=== PATIENT | female | born 1985 | race Caucasian/White ===

== ENCOUNTER → 2017-01-01 | Outpatient (CLI) | payer BC, MEDICAID ==
--- NOTE | 2017-01-01 15:09 | US ---
EXAMINATION: Transvaginal pelvic ultrasound HISTORY: Pain COMPARISON: None TECHNIQUE: Grayscale, color Doppler, spectral Doppler images obtained transvaginally. FINDINGS: The uterus appears normal in size, contour, and echogenicity without a focal uterine mass. Endometrial stripe thickness is normal at 4 mm. No significant free-flowing fluid. Both the left and right ovaries appear normal in size, contour, and echogenicity without an adnexal mass. Tiny follicles are noted bilaterally. Normal color and spectral Doppler flow. IMPRESSION: Unremarkable transvaginal pelvic ultrasound.
== END ==
LOC: MW.CHOBGYN 12:02
PROVIDERS: ATTEND Advanced Practice Midwife
DX: R10.2 Pelvic and perineal pain (principal)
CPT/HCPCS: 76857; 76857-26

== ENCOUNTER 2017-01-12 19:57 | Emergency (ER) | payer BC, MEDICAID, OTHER ==
--- NOTE | 2017-01-12 20:19 | EDM.PDOC ---
ED HPI GENERAL MEDICAL PROBLEM - General Chief Complaint: Upper Extremity Injury/Pain Stated Complaint: JAMMED LEFT HAND/WRIST Time Seen by Provider: 01/12/17 20:08 Source of Information: Reports: Patient History Limitations: Reports: No Limitations - History of Present Illness INITIAL COMMENTS - FREE TEXT/NARRATIVE: History of present illness: [31-year-old female presenting with complaints of pain in left hand and wrist. Indicates that she had a all healing scaphoid fracture in that hand and now after blunt force trauma playing softball that she has significant amounts of pain and difficult movement of left hand.] Review of systems: As per history of present illness and below otherwise all systems reviewed and negative. Past medical history: As per history of present illness and as reviewed below otherwise noncontributory. Surgical history: As per history of present illness and as reviewed below otherwise noncontributory. Social history: No reported history of drug or alcohol abuse. Family history: As per history of present illness and as reviewed below otherwise noncontributory. Physical exam: HEENT: Atraumatic, normocephalic, pupils reactive, negative for conjunctival pallor or scleral icterus, mucous membranes moist, throat clear, neck supple, nontender, trachea midline. Lungs: Clear to auscultation, breath sounds equal bilaterally, chest nontender. Heart: S1S2, regular, negative for clicks, rubs, or JVD. Abdomen: Soft, nondistended, nontender. Negative for masses or hepatosplenomegaly. Negative for costovertebral tenderness. Pelvis: Stable nontender. Genitourinary: Deferred. Rectal: Deferred. Extremities: Atraumatic, negative for cords or calf pain. Neurovascular unremarkable. Neuro: Awake, alert, oriented. Cranial nerves II through XII unremarkable. Cerebellum unremarkable. Motor and sensory unremarkable throughout. Exam nonfocal. Diagnostics: [X-ray left hand and wrist] Therapeutics: [] Impression: [left hand plane] Plan: [splint f/u with pcp] Definitive disposition and diagnosis as appropriate pending reevaluation and review of above. Left Wrist Pain Score (Numeric/FACES): 10 - Related Data Allergies Allergy/AdvReac Type Severity Reaction Status Date / Time amoxicillin Allergy Hives Verified 06/30/16 11:18 Latex, Natural Rubber Allergy Hives Verified 06/30/16 11:18 Home Meds: Home Meds Desogestrel-Ethinyl Estradiol [Desogestrel-Ethinyl Estrad Tab] 1 tab PO DAILY [History] Sertraline HCl [Zoloft] 50 tab PO DAILY 06/30/16 [History] Past Medical History HEENT History: Reports: None Cardiovascular History: Reports: None Respiratory History: Reports: None Gastrointestinal History: Reports: None Genitourinary History: Reports: None 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, Musculoskeletal History: Reports: Arthritis, Fracture Other Musculoskeletal History: 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, hx of fx right elbow Neurological History: Reports: None Psychiatric History: Reports: Depression Endocrine/Metabolic History: Reports: Obesity/BMI 30+ Hematologic History: Reports: None Immunologic History: Reports: None Oncologic (Cancer) History: Reports: None Dermatologic History: Reports: None - Past Surgical History GI Surgical History: Reports: Hernia, Abdominal Female Surgical History: Reports: Section Social & Family History - Tobacco Use Smoking Status *Q: Current Every Day Smoker - Alcohol Use Days Per Week of Alcohol Use: 1 - Recreational Drug Use Recreational Drug Use: No Drug Use in Last 12 Months: No Review of Systems - Review of Systems Review Of Systems: See Below (See history of present illness) Trauma Exam - Physical Exam Exam: See Below (See history of present illness) Course - Vital Signs Last Recorded V/S: Last Vital Signs Temp 37.1 C 01/12/17 20:02 Pulse 99 01/12/17 20:02 Resp 18 01/12/17 20:02 BP 135/87 01/12/17 20:02 Pulse Ox 98 01/12/17 20:02 - Orders/Labs/Meds Orders: Active Orders 24 hr Category Date Time Status Hand 2V Lt [CR] Stat Exams 01/12/17 20:07 Taken Departure - Departure Time of Disposition: 20:45 Disposition: Home, Self-Care 01 Condition: good Clinical Impression: Hand pain, left - Discharge Information Forms: ED Department Discharge Additional Instructions: The following information is given to patients seen in the emergency department who are being discharged to home. This information is to outline your options for follow-up care. We provide all patients seen in our emergency department with a follow-up referral. The need for follow-up, as well as the timing and circumstances, are variable depending upon the specifics of your emergency department visit. If you don't have a primary care physician on staff, we will provide you with a referral. We always advise you to contact your personal physician following an emergency department visit to inform them of the circumstance of the visit and for follow-up with them and/or the need for any referrals to a consulting specialist. The emergency department will also refer you to a specialist when appropriate. This referral assures that you have the opportunity for follow-up care with a specialist. All of these measure are taken in an effort to provide you with optimal care, which includes your follow-up. Under all circumstances we always encourage you to contact your private physician who remains a resource for coordinating your care. When calling for follow-up care, please make the office aware that this follow-up is from your recent emergency room visit. If for any reason you are refused follow-up, please contact the [facility] Emergency Department at and asked to speak to the emergency department charge nurse. You may alternate ice and heat on your wrist and hand for comfort no longer than 20 minutes at a time Keep hand elevated as much as possible You may take ibuprofen 800 mg every 8 hours as needed for discomfort Followup with your PCP in one to 2 days Return to ED as needed as discussed - My Orders Last 24 Hours: My Active Orders 01/12/17 20:07 Hand 2V Lt [CR] Stat - Assessment/Plan Last 24 Hours: My Active Orders 01/12/17 20:07 Hand 2V Lt [CR] Stat
[2017-01-12] MEDS ORDERED: Ketorolac 60 MG/2 ML SDV IM ONE (20:57)
[2017-01-12] MEDS ORDERED: Ketorolac 30 MG/ML SDV ONE (21:05)
[2017-01-12] MEDS ORDERED: Ketorolac 30 MG/ML SDV IVPUSH ONE (21:07)
[2017-01-12 21:41] VITALS: BP 117/73
--- NOTE | 2017-01-13 10:16 | CR ---
EXAM DATE: 01/12/17 PATIENT'S AGE: 31 Patient: CESAR MARTIN Facility: [place], [place] Site . Site : 1985 Study: XRay Extremity Left [id number]/30/2017 8:24:18 PM Ordering Physician: Doctor Christian Final Report: Indication: Injury. Technique: Left hand two views. Comparison: None. Findings: No acute fracture or dislocation. No additional osseous abnormality. Soft tissues as imaged are unremarkable. Impression: No acute osseous abnormality. Dictated by Cameron Shah MD @ 01/12/2017 8:29:53 PM Dictated by: Cameron Shah MD @ 01/12/2017 20:30:14 (Electronic Signature) Report Signed by Proxy. [facility]
== END 2017-01-12 21:39 | disposition home or self-care (01) ==
LOC: MW.ED 19:57
DX: M79.642 Pain in left hand (principal); S62.002D Unspecified fracture of navicular [scaphoid] bone of left wrist, subsequent encounter for fracture with routine healing; F32.9 Major depressive disorder, single episode, unspecified; F17.210 Nicotine dependence, cigarettes, uncomplicated; E66.9 Obesity, unspecified; Z79.899 Other long term (current) drug therapy; Z88.1 Allergy status to other antibiotic agents; Z91.040 Latex allergy status; Z98.890 Other specified postprocedural states; Y93.64 Activity, baseball
CPT/HCPCS: 29125; 73120; 96372; 99283; J1885; 99282

== ENCOUNTER 2018-09-26 16:10 | Emergency (ER) | payer OTHER, BC ==
[2018-09-26] MEDS ORDERED: Ketorolac 60 MG/2 ML SDV IM ONE (16:46)
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
[2018-09-26] MEDS ORDERED: Cyclobenzaprine 10 MG Tab PO ONE ×2 (18:44→21:17)
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
[2018-09-26] MEDS ORDERED: traMADol 50 MG Tab PO ONE (21:17)
[2018-09-26 21:23] VITALS: BP 124/87
== END 2018-09-26 21:27 | disposition home or self-care (01) ==
LOC: MW.ED 16:10
DX: S16.1XXA Strain of muscle, fascia and tendon at neck level, initial encounter (principal); S39.012A Strain of muscle, fascia and tendon of lower back, initial encounter; Z88.1 Allergy status to other antibiotic agents; Z91.040 Latex allergy status; Z88.0 Allergy status to penicillin; Z79.899 Other long term (current) drug therapy; V40.5XXA Car driver injured in collision with pedestrian or animal in traffic accident, initial encounter
CPT/HCPCS: 72040; 72125; 72131; 96372; 99284; A9270; J1885

== ENCOUNTER 2019-08-04 03:36 | Inpatient (IN) | payer MEDICAID ==
[2019-08-04] MEDS ORDERED: Citric Acid/Sodium Citrate Solution 30 ML Cup PO ONE (07:40)
[2019-08-04] MEDS ORDERED: Sodium Chloride 0.9% 2.5 ML Syringe FLUSH PRN (07:40)
[2019-08-04] MEDS ORDERED: Sodium Chloride 0.9% 10 ML SDV IV PRN (07:40)
[2019-08-04] MEDS ORDERED: Sodium Chloride 0.9% 10 ML Syringe FLUSH PRN (07:40)
[2019-08-04] MEDS ORDERED: Lactated Ringers 1,000 ML IV SCH ×2 (07:45→11:15)
[2019-08-04] MEDS ORDERED: Oxytocin/0.9 % Sodium Chloride 30 UNIT/500 ML BAG IV SCH (07:45)
[2019-08-04] MEDS ORDERED: Tranexamic Acid 1,000 MG in Sodium Chloride 0.9% 100 ML IV PRN ×2 (08:03→11:02)
[2019-08-04] MEDS ORDERED: Misoprostol 200 MCG Tab RECTAL PRN ×2 (08:03→11:02)
[2019-08-04] MEDS ORDERED: Carboprost Tromethamine 250 MCG/1 ML Amp IM PRN (08:03)
[2019-08-04] MEDS ORDERED: Methylergonovine 0.2 MG/1 ML Amp IM PRN ×2 (08:03→11:02)
[2019-08-04] MEDS ORDERED: ceFAZolin 2 GM in Premix Bag 1 BAG IV ONE (08:28)
--- NOTE | 2019-08-04 08:52 | PCM.PREANE ---
Preanesthetic Assessment - Anesthesia/Transfusion/Family Hx Anesthesia History: Prior Anesthesia Without Reaction Family History of Anesthesia Reaction: No Transfusion History: No Prior Transfusion(s) Intubation History: Unknown - Review of Systems General: No Symptoms Pulmonary: No Symptoms Cardiovascular: No Symptoms Gastrointestinal: No Symptoms Neurological: No Symptoms Other: Reports: None - Physical Assessment Height: 5 ft 11 in Weight: 125.191 kg ASA Class: 2 Mental Status: Alert & Oriented x3 Airway Class: Mallampati = 2 Dentition: Reports: Normal Dentition Thyro-Mental Finger Breadths: 3 Mouth Opening Finger Breadths: 3 ROM/Head Extension: Full Lungs: Clear to Auscultation, Normal Respiratory Effort Cardiovascular: Regular Rate, Regular Rhythm - Allergies Allergies/Adverse Reactions: Allergies Allergy/AdvReac Type Severity Reaction Status Date / Time amoxicillin Allergy Hives Verified 05/14/19 15:23 Latex, Natural Rubber Allergy Hives Verified 05/14/19 15:23 Penicillins Allergy Hives Verified 05/14/19 15:23 - Blood Blood Available: No - Anesthesia Plan Pre-Op Medication Ordered: None - Acknowledgements Anesthesia Type Planned: Spinal (general anesthesia back-up plan) Pt an Appropriate Candidate for the Planned Anesthesia: Yes Alternatives and Risks of Anesthesia Discussed w Pt/Guardian: Yes Pt/Guardian Understands and Agrees with Anesthesia Plan: Yes PreAnesthesia Questionnaire HEENT History: Reports: None Cardiovascular History: Reports: None Respiratory History: Reports: None Gastrointestinal History: Reports: None Genitourinary History: Reports: None 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 Uterine Bleeding, Musculoskeletal History: Reports: Arthritis, Fracture Other Musculoskeletal History: 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, hx of fx right elbow Neurological History: Reports: None Psychiatric History: Reports: Depression Endocrine/Metabolic History: Reports: Obesity/BMI 30+ Hematologic History: Reports: None Immunologic History: Reports: None Oncologic (Cancer) History: Reports: None Dermatologic History: Reports: None - Infectious Disease History Infectious Disease History: Reports: None - Past Surgical History Head Surgeries/Procedures: Reports: None GI Surgical History: Reports: Hernia, Abdominal (x2), Other (See Below) ( abdominal laparoscopy) Female Surgical History: Reports: Section (under epidural) - HOME MEDS Home Medications: Home Meds Diclofenac Sodium [Voltaren] 75 mg PO BIDMEALS PRN #20 tab.cr 09/26/18 [Rx] Orphenadrine [Norflex] 100 mg PO BID PRN #16 tab 09/26/18 [Rx] traMADol HCl [Tramadol HCl] 50 mg PO Q6H PRN #10 tablet 09/26/18 [Rx] Pnv No.95/Ferrous Fum/Folic AC [ Vitamins Tablet] 1 tab PO DAILY [History] - CURRENT (IN HOUSE) MEDS Current Meds: Current Medications Carboprost Tromethamine (Hemabate Ds) 250 mcg IM ASDIRECTED PRN PRN Reason: Excessive vaginal bleeding Oxytocin/Sodium Chloride (Oxytocin 30 Unit/500 Ml-Ns) 30 unit in 500 mls @ 250 mls/hr IV TITRATE AISHA Lactated Ringer's (Ringers, Lactated) 1,000 mls @ 500 mls/hr IV BOLUS AISHA Tranexamic Acid 1,000 mg/ (Sodium Chloride) 110 mls @ 660 mls/hr IV ONETIME PRN PRN Reason: Bleeding Cefazolin Sodium/Dextrose 2 gm (/ Premix) 50 mls @ 100 mls/hr IV ONETIME ONE Stop: 08/04/19 08:57 Methylergonovine Maleate (Methergine) 0.2 mg IM ONETIME PRN PRN Reason: Excessive Vaginal Bleeding Misoprostol (Cytotec) 1,000 mcg RECTAL ONETIME PRN PRN Reason: excessive vaginal bleeding Sodium Chloride (Saline Flush) 10 ml FLUSH ASDIRECTED PRN PRN Reason: Keep Vein Open Sodium Chloride (Saline Flush) 2.5 ml FLUSH ASDIRECTED PRN PRN Reason: Keep Vein Open Sodium Chloride (Normal Saline) 10 ml IV ASDIRECTED PRN PRN Reason: IV Use Discontinued Medications Citric Acid/Sodium Citrate (Bicitra Solution) 30 ml PO ONETIME ONE Stop: 08/04/19 07:41
[2019-08-04] MEDS ORDERED: Ondansetron 4 MG/2 ML SDV ONE (09:40)
[2019-08-04] MEDS ORDERED: Oxytocin 10 Units/1 ML SDV ONE (09:40)
[2019-08-04] MEDS ORDERED: Morphine PF 10 MG/10 ML SDV ONE (09:40)
[2019-08-04] MEDS ORDERED: Sodium Chloride 0.9% 20 ML ONE (09:43)
[2019-08-04] MEDS ORDERED: ceFAZolin 1 GM Vial ONE (09:43)
[2019-08-04] MEDS ORDERED: Glycopyrrolate 0.2 MG/ML SDV ONE (10:12)
[2019-08-04] MEDS ORDERED: Naloxone 0.4 MG/ML Syringe IVPUSH PRN (10:40)
[2019-08-04] MEDS ORDERED: Nalbuphine 10 MG/1 ML Vial IVPUSH PRN (10:40)
[2019-08-04] MEDS ORDERED: Acetaminophen/oxyCODONE 325-5 MG Tab PO PRN ×2 (11:02)
[2019-08-04] MEDS ORDERED: Ondansetron 4 MG/2 ML SDV IVPUSH PRN (11:02)
[2019-08-04] MEDS ORDERED: Lanolin 100% Cream 7 GM Tube TOP PRN (11:02)
[2019-08-04] MEDS ORDERED: Bisacodyl 10 MG Supp RECTAL PRN (11:02)
[2019-08-04] MEDS ORDERED: Oxytocin 10 Units/1 ML SDV IM PRN (11:02)
[2019-08-04] MEDS ORDERED: diphenhydrAMINE 50 MG/ML SDV IVPUSH PRN (11:02)
[2019-08-04] MEDS: Ketorolac 30 MG/ML SDV IVPUSH SCH ×3 (11:24→23:36)
--- NOTE | 2019-08-04 11:26 | PCM.OPNOTE ---
- General Post-Op/Procedure Note Date of Surgery/Procedure: 08/04/19 Operative Procedure(s): Repeat LTCS Findings: Viable Female APGARs 8, 9 weight 3960 gm. Intact placenta with 3V cord Pre Op Diagnosis: 38/6 week IUP. Early labor. Previous c section, desires repeat Post-Op Diagnosis: Same Anesthesia Technique: Spinal Primary Surgeon: Cande Cruz Fluid Replacement, Intraop: 1,200 EBL in mLs: 500 Complications: none known Condition: Stable Free Text/Narrative:: Dictation [id number]
--- NOTE | 2019-08-04 11:35 | PCM.POSTAN ---
POST ANESTHESIA ASSESSMENT - MENTAL STATUS Mental Status: Alert, Oriented - VITAL SIGNS Vital Signs: Last Vital Signs Temp 98.8 F 08/04/19 10:53 Pulse 94 08/04/19 11:29 Resp 16 08/04/19 11:29 BP 109/60 08/04/19 11:29 Pulse Ox 94 L 08/04/19 11:29 - RESPIRATORY Respiratory Status: Respiratory Rate WNL, Airway Patent, O2 Saturation Stable - CARDIOVASCULAR CV Status: Pulse Rate WNL, Blood Pressure Stable - GASTROINTESTINAL GI Status: No Symptoms - PAIN Pain Score: 0 - POST OP HYDRATION Hydration Status: Adequate & Stable
[2019-08-04] MEDS: diphenhydrAMINE 50 MG/ML SDV IVPUSH PRN ×3 (13:15→23:36)
--- NOTE | 2019-08-04 13:25 | OR ---
SURGEON: Cande Cruz M.D. DATE OF PROCEDURE: 08/04/2019 PREOPERATIVE DIAGNOSES: 1. A 38-6/7 weeks' intrauterine . 2. Early labor. 3. Previous section, desires repeat. POSTOPERATIVE DIAGNOSES: 1. A 38-6/7 weeks' intrauterine . 2. Early labor. 3. Previous section, desires repeat. PROCEDURE: Repeat low-transverse section. PRIMARY SURGEON: Cande Cruz MD. SERVICE LINE COORDINATOR: Leisa Billingsley. ESTIMATED BLOOD LOSS: 500 mL. ANESTHESIA: Spinal. FLUIDS: 1200 mL of crystalloid. COMPLICATIONS: None known. FINDINGS: Viable female. scores 8 at one minute and 9 at five minutes. Weight of 3960 g. Intact placenta, 3-vessel cord. DISPOSITION: Infant to nursery, mom in PACU. PROCEDURE DETAILS: Susan is a 34-year-old, G2, P1, at 38-6/7 weeks' gestational age, who presents on the morning of 08/04/2019 with regular contractions every 3 minutes. With observation, she continued to have persistent contractions. Given she is 38-6/7 weeks and this is the second time she has been to the hospital with persistent contractions in 24 hours, felt best to proceed with delivery. The patient had requested to have a repeat delivery. Risks of procedure have been discussed. Proper consent obtained. The patient was taken to the operating room where she underwent spinal anesthetic, was then placed in dorsal supine position with leftward tilt. SCDs to lower extremities. Valle to gravity. Was prepped and draped in usual sterile fashion. Received Ancef prophylactically. Time-out was performed. Anesthesia was tested, found to be adequate. Previous Pfannenstiel scar was now excised. Subcutaneous tissue was incised down to the level of the rectus fascia, was incised laterally sharply and bluntly on either side. The superior aspect of fascia was tented upward, dissected sharply and bluntly from underlying muscle. Similar aspect was performed to the inferior aspect of the fascia. Rectus muscle and peritoneum were entered and rectus muscle and peritoneum were now lateralized bluntly. Uterine position and position palpated. Self-retaining retractor was gently placed. Uterovesical reflection was visualized. Bladder flap was created sharply and bluntly. The bladder was mobilized away from the lower uterine segment. Low transverse hysterotomy was now performed. Uterine cavity was entered with blunt-ended scalpel. Hysterotomy was lateralized bluntly. Amniotomy was performed. Clear fluid was returned. The 's head was flexed, delivered from the pelvis. The infant's head was delivered followed by anterior shoulder, posterior shoulder, and remainder of the body without difficulty. The infant's oropharynx and nares were bulb suctioned. Cord was clamped x2 and cut. Infant was handed off to attending nursery staff. Cord arterial, cord venous, cord blood sampling obtained. The placenta was now delivered. Uterine cavity was cleared of all clot and debris. Hysterotomy was repaired using 0 Vicryl in continuous running locked fashion followed by re- imbricating layer. The posterior aspect of the uterus inspected. No defects or hematomas found to be forming. Region was well irrigated, suction dried. Colonic gutters were cleared of all clot and debris. Hysterotomy was again inspected, found to hemostatic. Uterus remained firm. Self-retaining retractors were removed. Hysterotomy once again inspected, found to be hemostatic. Rectus muscle and peritoneum were now reapproximated using 0 Vicryl in the inverted mattress suture technique. Anterior aspect of the muscle, posterior aspect of the fascia closely inspected. Any areas of oozing were cauterized. Rectus fascia was reapproximated using 0 Vicryl, beginning laterally on each side and meeting in the midline, in continuous running fashion. Subcutaneous tissue was well irrigated, suction dried. Any areas of oozing were cauterized. The skin edges were reapproximated using 3-0 Vicryl on a Tommy needle in subcuticular fashion, followed by half-inch Steri-Strips and Mastisol. Sponge, instrument, and needle count was correct x2. The patient tolerated the procedure well overall. She will go to PACU in stable condition, infant to nursery. KIRBY / BRIANNA /[id number]
[2019-08-04] MEDS: Docusate Sodium 100 MG Cap PO SCH (20:54)
[2019-08-05] MEDS: Ketorolac 30 MG/ML SDV IVPUSH SCH ×2 (05:31→11:38)
--- NOTE | 2019-08-05 07:36 | PCM.PNPP ---
- General Info Date of Service: 08/05/19 Functional Status: Reports: Pain Controlled, Tolerating Diet, Ambulating. Denies: Urinating (just got catheter out.) - Review of Systems General: Reports: No Symptoms HEENT: Reports: No Symptoms Pulmonary: Reports: No Symptoms Cardiovascular: Reports: No Symptoms Gastrointestinal: Reports: No Symptoms Genitourinary: Reports: No Symptoms Musculoskeletal: Reports: No Symptoms Skin: Reports: No Symptoms Neurological: Reports: No Symptoms Psychiatric: Reports: No Symptoms - General Info Date of Service: 08/05/19 - Patient Data Vital Signs - Most Recent: Last Vital Signs Temp 36.8 C 08/05/19 04:00 Pulse 89 08/05/19 06:00 Resp 16 08/05/19 06:00 BP 108/55 L 08/05/19 04:00 Pulse Ox 97 08/05/19 06:00 Weight - Most Recent: 125.191 kg I&O - Last 24 Hours: Intake & Output 08/04/19 08/05/19 08/05/19 22:59 06:59 14:59 Intake Total 2250 Output Total 425 2200 Balance -425 50 Lab Results - Last 24 Hours: Laboratory Results - last 24 hr 08/04/19 08/04/19 08/04/19 Range/Units 08:50 08:50 10:22 WBC 9.46 (4.0-11.0) K/uL RBC 3.73 L (4.30-5.90) M/uL Hgb 12.5 (12.0-16.0) g/dL Hct 37.0 (36.0-46.0) % MCV 99.2 H (80.0-98.0) fL MCH 33.5 H (27.0-32.0) pg MCHC 33.8 (31.0-37.0) g/dL RDW Std Deviation 50.6 (28.0-62.0) fl RDW Coeff of Sydnee 14 (11.0-15.0) % Plt Count 212 (150-400) K/uL MPV 9.90 (7.40-12.00) fL Nucleated RBC % 0.0 /100WBC Nucleated RBCs # 0 K/uL Cord ABG pH 7.287 (7.18-7.38) Cord ABG Base Excess -2 (-10--2) Cord VBG pH 7.321 (7.25-7.45) Cord VBG Base Excess -3 (-10--2) Blood Type B POSITIVE Antibody Screen NEGATIVE 08/05/19 Range/Units 05:58 WBC (4.0-11.0) K/uL RBC (4.30-5.90) M/uL Hgb 12.3 (12.0-16.0) g/dL Hct 36.2 (36.0-46.0) % MCV (80.0-98.0) fL MCH (27.0-32.0) pg MCHC (31.0-37.0) g/dL RDW Std Deviation (28.0-62.0) fl RDW Coeff of Sydnee (11.0-15.0) % Plt Count (150-400) K/uL MPV (7.40-12.00) fL Nucleated RBC % /100WBC Nucleated RBCs # K/uL Cord ABG pH (7.18-7.38) Cord ABG Base Excess (-10--2) Cord VBG pH (7.25-7.45) Cord VBG Base Excess (-10--2) Blood Type Antibody Screen Med Orders - Current: Current Medications Bisacodyl (Dulcolax) 10 mg RECTAL ONETIME PRN PRN Reason: Constipation Carboprost Tromethamine (Hemabate Ds) 250 mcg IM ASDIRECTED PRN PRN Reason: Excessive vaginal bleeding Diphenhydramine HCl (Benadryl) 25 mg IVPUSH Q4H PRN PRN Reason: Itching Stop: 08/05/19 10:41 Last Admin: 08/04/19 23:36 Dose: 25 mg Diphenhydramine HCl (Benadryl) 25 mg IVPUSH Q6H PRN PRN Reason: Itching or Nausea Docusate Sodium (Colace) 100 mg PO BID [facility] Last Admin: 08/04/19 20:54 Dose: 100 mg Emollient Ointment (Lansinoh Hpa) 0 gm TOP ASDIRECTED PRN PRN Reason: Sore Nipples Last Admin: 08/04/19 17:23 Dose: 1 tube Oxytocin/Sodium Chloride (Oxytocin 30 Unit/500 Ml-Ns) 30 unit in 500 mls @ 250 mls/hr IV TITRATE [facility] Lactated Ringer's (Ringers, Lactated) 1,000 mls @ 500 mls/hr IV BOLUS [facility] Last Admin: 08/04/19 08:55 Dose: 500 mls/hr Tranexamic Acid 1,000 mg/ (Sodium Chloride) 110 mls @ 660 mls/hr IV ONETIME PRN PRN Reason: Bleeding Tranexamic Acid 1,000 mg/ (Sodium Chloride) 110 mls @ 660 mls/hr IV ONETIME PRN PRN Reason: Bleeding Lactated Ringer's (Ringers, Lactated) 1,000 mls @ 125 mls/hr IV ASDIRECTED [facility] Last Admin: 08/04/19 12:06 Dose: 125 mls/hr Ibuprofen (Motrin) 800 mg PO Q8H PRN PRN Reason: mild pain or fever Ketorolac Tromethamine (Toradol) 30 mg IVPUSH Q6H [facility] Stop: 08/05/19 11:16 Last Admin: 08/05/19 05:31 Dose: 30 mg Methylergonovine Maleate (Methergine) 0.2 mg IM ONETIME PRN PRN Reason: Excessive Vaginal Bleeding Methylergonovine Maleate (Methergine) 0.2 mg IM ONETIME PRN PRN Reason: Excessive Vaginal Bleeding Misoprostol (Cytotec) 1,000 mcg RECTAL ONETIME PRN PRN Reason: excessive vaginal bleeding Misoprostol (Cytotec) 1,000 mcg RECTAL ONETIME PRN PRN Reason: excessive bleeding Nalbuphine HCl (Nubain) 5 mg IVPUSH Q3H PRN PRN Reason: Pruritis Stop: 08/05/19 10:41 Naloxone HCl (Narcan) 0.1 mg IVPUSH ONETIME PRN PRN Reason: Respiratory Depression Stop: 08/05/19 10:41 Ondansetron HCl (Zofran) 4 mg IVPUSH Q4H PRN PRN Reason: Nausea/Vomiting Oxycodone/Acetaminophen (Percocet 325-5 Mg) 1 tab PO Q4H PRN PRN Reason: Pain (moderate 4-6) Oxycodone/Acetaminophen (Percocet 325-5 Mg) 2 tab PO Q4H PRN PRN Reason: Pain (moderate 4-6) Oxytocin (Pitocin) 10 unit IM ASDIRECTED PRN PRN Reason: Excessive Vaginal Bleeding Sodium Chloride (Saline Flush) 10 ml FLUSH ASDIRECTED PRN PRN Reason: Keep Vein Open Sodium Chloride (Saline Flush) 2.5 ml FLUSH ASDIRECTED PRN PRN Reason: Keep Vein Open Sodium Chloride (Normal Saline) 10 ml IV ASDIRECTED PRN PRN Reason: IV Use Discontinued Medications Cefazolin Sodium (Ancef) Confirm Administered Dose 2 gm .ROUTE .STK-MED ONE Stop: 08/04/19 09:44 Citric Acid/Sodium Citrate (Bicitra Solution) 30 ml PO ONETIME ONE Stop: 08/04/19 07:41 Glycopyrrolate (Robinul) Confirm Administered Dose 0.2 mg .ROUTE .STK-MED ONE Stop: 08/04/19 10:13 Cefazolin Sodium/Dextrose 2 gm (/ Premix) 50 mls @ 100 mls/hr IV ONETIME ONE Stop: 08/04/19 08:57 Sodium Chloride (Normal Saline) Confirm Administered Dose 20 mls @ as directed .ROUTE .STK-MED ONE Stop: 08/04/19 09:44 Morphine Sulfate (Duramorph Pf) Confirm Administered Dose 10 mg .ROUTE .STK-MED ONE Stop: 08/04/19 09:41 Ondansetron HCl (Zofran) Confirm Administered Dose 4 mg .ROUTE .STK-MED ONE Stop: 08/04/19 09:41 Oxytocin (Pitocin) Confirm Administered Dose 30 unit .ROUTE .STK-MED ONE Stop: 08/04/19 09:41 - Infant Interaction Disposition, : in Room with Family Interaction: Holding Feeding: Breastfed Infant; Nursed Well Support Person: Significant Other - Recovery Exam Fundal Tone: Firm Fundal Level: 1 Fingerbreadths Below Umbilicus Fundal Placement: Midline Lochia Amount: Scant Lochia Color: Rubra/Red Perineum Description: Intact, Minimal Bruising/Swelling Episiotomy/Laceration: None Bladder Status: Indwelling Catheter in Place Urinary Elimination: Indwelling Catheter - Exam General: Alert, Oriented HEENT: Pupils Equal Neck: Supple Lungs: Clear to Auscultation, Normal Respiratory Effort Cardiovascular: Regular Rate, Regular Rhythm GI/Abdominal Exam: Normal Bowel Sounds, Soft, Non-Tender, No Distention Extremities: Normal Inspection, Non-Tender. No: No Pedal Edema (1+ equal bilaterally) Skin: Warm, Dry, Intact Wound/Incisions: Dressing Dry and Intact Neurological: No New Focal Deficit Psy/Mental Status: Alert, Normal Affect, Normal Mood - Problem List & Annotations (1) delivery delivered SNOMED Code(s): 394783604 Code(s): O82 - ENCOUNTER FOR DELIVERY WITHOUT INDICATION Status: Acute Current Visit: Yes - Problem List Review Problem List Initiated/Reviewed/Updated: Yes - Assessment Assessment:: POD#1 after repeat low transverse , early labor. tolerating diet, pain is well controlled. She would like to be discharged to day. - Plan Plan:: Discussed remove dressing, ambulate, shower. If she is tolerating diet and pain is well controlled she may be discharged today. discharge instructions reviewed.
[2019-08-05] MEDS ORDERED: Acetaminophen/HYDROcodone 325-5 MG Tab PO PRN (07:40)
[2019-08-05] MEDS: Docusate Sodium 100 MG Cap PO SCH (08:27)
--- NOTE | 2019-08-05 11:26 | PCM.POSTAN ---
POST ANESTHESIA ASSESSMENT - MENTAL STATUS Mental Status: Oriented - VITAL SIGNS Vital Signs: Last Vital Signs Temp 36.8 C 08/05/19 04:00 Pulse 80 08/05/19 08:50 Resp 18 08/05/19 08:50 BP 118/72 08/05/19 08:50 Pulse Ox 95 08/05/19 08:50 - RESPIRATORY Respiratory Status: Respiratory Rate WNL, Airway Patent, O2 Saturation Stable - CARDIOVASCULAR CV Status: Pulse Rate WNL, Blood Pressure Stable - GASTROINTESTINAL GI Status: No Symptoms - POST OP HYDRATION Hydration Status: Adequate & Stable
--- NOTE | 2019-08-05 11:27 | PCM48HPAN ---
Post Anesthesia Note - EVALUATION WITHIN 48HRS OF ANESTHETIC Vital Signs in Normal Range: Yes Patient Participated in Evaluation: Yes Respiratory Function Stable: Yes Airway Patent: Yes Cardiovascular Function Stable: Yes Hydration Status Stable: Yes Pain Control Satisfactory: Yes Nausea and Vomiting Control Satisfactory: Yes Mental Status Recovered: Yes Vital Signs: Last Vital Signs Temp 36.8 C 08/05/19 04:00 Pulse 80 08/05/19 08:50 Resp 18 08/05/19 08:50 BP 118/72 08/05/19 08:50 Pulse Ox 95 08/05/19 08:50
[2019-08-05 13:06] VITALS: BP 114/71; PULSE 87
[2019-08-05] MEDS ORDERED: Ibuprofen 800 MG Tab PO PRN (17:20)
== END 2019-08-05 14:35 | disposition home or self-care (01) | DRG 788 ==
LOC: MW.OBCHECK 03:36 → MW.OB 03:37 → UNDOADMOB 07:40 → MW.OB 07:40 → OBSVTOIN 10:20 → INTOOBSV 10:20 → MW.OBCHECK 10:25 → MW.OB 16:50
PROVIDERS: ADMIT Obstetrics & Gynecology; ATTEND Obstetrics & Gynecology
PROC: 10D00Z1 Extraction of Products of Conception, Low, Open Approach (ICD-10-PCS; principal; 2019-08-04)
DX: O34.211 Maternal care for low transverse scar from previous cesarean delivery (principal); Z37.0 Single live birth; Z3A.38 38 weeks gestation of pregnancy
CPT/HCPCS: 36415; 59025; 82803; 85014; 85018; 85027; 86593; 86850; 86900; 86901; A9270-GY; J0690; J1200; J1885; J2270; J2405; J2590; J3490; J7120

== ENCOUNTER 2020-08-17 19:58 | Emergency (ER) | payer MEDICAID ==
[2020-08-17] MEDS ORDERED: Ibuprofen 800 MG Tab PO ONE (20:33)
[2020-08-17] MEDS ORDERED: Acetaminophen/HYDROcodone 325-5 MG Tab PO ONE (20:33)
--- NOTE | 2020-08-17 21:44 | CR ---
INDICATION: Hip pain TECHNIQUE: Three views right hip COMPARISON: None available FINDINGS: No acute fracture or dislocation. Acetabular osteophyte laterally on the right. Bone mineralization is normal. IMPRESSION: No acute fracture or dislocation. Dictated by Jeremiah Adkins MD @ Aug 17 2020 9:37PM (Electronically Signed)
--- NOTE | 2020-08-17 22:04 | EDM.PDOC ---
ED HPI GENERAL MEDICAL PROBLEM - General Chief Complaint: Back Pain or Injury Stated Complaint: RT HIP PAIN Time Seen by Provider: 08/17/20 20:04 Source of Information: Reports: Patient History Limitations: Reports: No Limitations - History of Present Illness INITIAL COMMENTS - FREE TEXT/NARRATIVE: HISTORY AND PHYSICAL: History of present illness: Patient is a 35-year-old female who presents to the ED today with concern of worsening right hip pain over the past 1 week. Patient states 1 week ago she was visiting [facility] home in [place] and states that she was sleeping on a really old/poor mattress. Patient states it was a pullout mattress from a couch that she was sleeping on at her mother's house. Patient states that she sleeps on her right side and when she woke up 1 morning started noticing some right hip discomfort. Patient states over the course of the past 1 week she has had worsening right hip pain and states especially worsening over the past 1 to 2 days that she has had a difficulty with walking due to the pain and discomfort. Patient denies any direct trauma to the hip or any falls. Patient denies any health history. Patient states that she has been taking [id number] Tylenol and ibuprofen and states that she is getting some relief with this but is still having difficulties with walking. Patient states that she has not been sexually active so does not believe that she can be . Patient denies fever, chills, chest pain, shortness of breath, or cough. Denies headache, neck stiff ness, change in vision, syncope, or near syncope. Denies nausea, vomiting, abdominal pain, diarrhea, constipation, or dysuria. Has not noted any blood in urine or stool. Patient has been eating and drinking appropriately. Review of systems: As per history of present illness and below otherwise all systems reviewed and negative. Past medical history: As per history of present illness and as reviewed below otherwise noncontributory. Surgical history: As per history of present illness and as reviewed below otherwise noncontributory. Social history: See social history for further information Family history: As per history of present illness and as reviewed below otherwise noncontributory. Physical exam: General: Patient is alert, oriented, and in no acute distress. Patient laying comfortably on exam table. Vitals stable and reviewed by me. HEENT: Atraumatic, normocephalic, pupils equal and reactive bilaterally, negative for conjunctival pallor or scleral icterus, mucous membranes moist, TMs normal bilaterally, throat clear, neck supple, nontender, trachea midline. No drooling or trismus noted. No meningeal signs. No hot potato voice noted. Lungs: Clear to auscultation, breath sounds equal bilaterally, chest nontender. Heart: S1S2, regular rate and rhythm without overt murmur Abdomen: Soft, nondistended, nontender. Negative for masses or hepatosplenomegaly. Negative for costovertebral tenderness. Pelvis: Stable nontender. Genitourinary: Deferred. Rectal: Deferred. Skin: Intact, warm, dry. No lesions or rashes noted. Extremities: Patient able to ambulate into the ED today but does have pain of the RLE and favoring the left LE with gait. She has difficulties sitting down due to pain but is more comfortable once able to lay flat on exam table. She does have full ROM of bilateral lower extremities but moderate pain with abduction of the right hip and pain to palpation overlying the right sided greater trochanter and into the posterior right hip. Patient does have full ROM of the right knee/ankle without pain or difficulty. DP/PT tibial pulses grossly intact of the RLE with cap refill < 2 seconds. No erythema, rashes, lesions noted of the RLE. No obvious deformity of the complete spine. No step-offs, crepitus, or point tenderness to palpation of the complete spine. Patient does have full range of motion of the complete spine without pain or difficulty. Otherwise, atraumatic, negative for cords or calf pain. Neurovascular unremarkable. Neuro: Awake, alert, oriented. Cranial nerves II through XII unremarkable. Cerebellum unremarkable. Motor and sensory unremarkable throughout. Exam nonfocal. Notes: Upon reexamination of patient, she is more comfortable following therapeutics today but still has some favoring of the left lower extremity with gait, but has improved clinically. Signs and symptoms that would prompt return to the ED thoroughly discussed with patient. Discussed importance for follow-up with a primary care provider. Voices understanding and is agreeable to plan of care. Denies any further questions or concerns at this time. Diagnostics: Hip w pelvis XR, Right, UA, [employer]: [place], Ibuprofen Prescription: Tramadol (#10), Diclofenac, Lidocaine patches Impression: Right hip pain Plan: 1. The medication you received today does cause drowsiness, so do not drive for the remaining day. 2. When resting please lay on a flat firm surface. Limit your mobility to prevent muscle stiffness. Get up to ambulate/move around/gentle stretching multiple times throughout the day. May alternate heat and ice to painful areas. 3. Tylenol as needed for back pain. Otherwise, take the prescribed tramadol and diclofenac as directed. Diclofenac as an anti-inflammatory medication so do not take any additional NSAIDs with this medication, such as naproxen, ibupro fen, or Aleve. Tramadol, this medication may cause drowsiness, so do not take it while driving or needing to be functioning outside of the home. 4. Follow-up with your primary care provider as discussed. Return to the ED as needed and as discussed. Definitive disposition and diagnosis as appropriate pending reevaluation and review of above. Right Hip Pain Score (Numeric/FACES): 7 - Related Data Allergies Allergy/AdvReac Type Severity Reaction Status Date / Time amoxicillin Allergy Hives Verified 08/17/20 20:15 Latex, Natural Rubber Allergy Hives Verified 08/17/20 20:15 Penicillins Allergy Hives Verified 08/17/20 20:15 Home Meds: Home Meds Acetaminophen/HYDROcodone [[place] 325-5 MG] 1 tab PO Q4H PRN 08/17/20 [History] Diclofenac Sodium [Voltaren] 75 mg PO BIDMEALS PRN #15 tab.cr 08/18/20 [Rx] Lidocaine [Lidocaine Pain Relief] 1 each TP DAILY PRN #3 adh..patch 08/18/20 [R x] traMADol [Ultram] 50 mg PO Q6H PRN #10 tab 08/18/20 [Rx] Past Medical History HEENT History: Reports: None Cardiovascular History: Reports: None Respiratory History: Reports: None Gastrointestinal History: Reports: None Other Gastrointestinal History: heartburn in Genitourinary History: Reports: None DIRECTOR OF NURSING History: Reports: Dysfunctional Uterine Bleeding, Musculoskeletal History: Reports: Arthritis, Fracture Other Musculoskeletal History: 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, hx of fx right elbow Neurological History: Reports: None Psychiatric History: Reports: Depression Endocrine/Metabolic History: Reports: Obesity/BMI 30+ Hematologic History: Reports: None Immunologic History: Reports: None Oncologic (Cancer) History: Reports: None Dermatologic History: Reports: None - Infectious Disease History Infectious Disease History: Reports: None - Past Surgical History Head Surgeries/Procedures: Reports: None HEENT Surgical History: Reports: Tonsillectomy Cardiovascular Surgical History: Reports: None Respiratory Surgical History: Reports: None GI Surgical History: Reports: Hernia, Abdominal, Other (See Below) Other GI Surgeries/Procedures: Repaired 10/2013 and 03/2014. Female Surgical History: Reports: Section Endocrine Surgical History: Reports: None Neurological Surgical History: Reports: None Musculoskeletal Surgical History: Reports: Carpal Tunnel, Other (See Below) Other Musculoskeletal Surgeries/Procedures:: 06/2018 Oncologic Surgical History: Reports: None Dermatological Surgical History: Reports: None Social & Family History - Family History Family Medical History: No Pertinent Family History Cardiac: Reports: High Cholesterol, Hypertension, [place] Oncologic: Reports: Ovarian - Tobacco Use Tobacco Use Status *Q: Never Tobacco User Second Hand Smoke Exposure: No - Caffeine Use Caffeine Use: Reports: None - Recreational Drug Use Recreational Drug Use: No ED ROS GENERAL - Review of Systems Review Of Systems: Comprehensive ROS is negative, except as noted in HPI. ED EXAM, GENERAL - Physical Exam Exam: See Below (see dictation) Course - Vital Signs Last Recorded V/S: Last Vital Signs Temp 98 F 08/17/20 22:05 Pulse 58 L 08/17/20 22:05 Resp 16 08/17/20 22:05 BP 148/82 H 08/17/20 22:05 Pulse Ox 99 08/17/20 22:05 - Orders/Labs/Meds Labs: Laboratory Tests 08/17/20 08/17/20 Range/Units 20:35 20:35 Urine Color YELLOW Urine Appearance CLEAR Urine pH 6.5 (5.0-8.0) Ur Specific [place] 1.020 (1.001-1.035) Urine Protein NEGATIVE (NEGATIVE) mg/dL Urine Glucose (UA) NEGATIVE (NEGATIVE) mg/dL Urine Ketones NEGATIVE (NEGATIVE) mg/dL Urine Occult Blood NEGATIVE (NEGATIVE) Urine Nitrite NEGATIVE (NEGATIVE) Urine Bilirubin NEGATIVE (NEGATIVE) Urine Urobilinogen 0.2 (<2.0) EU/dL Ur Leukocyte Esterase NEGATIVE (NEGATIVE) Urine HCG, Qual NEGATIVE (NEGATIVE) Meds: Medications Discontinued Medications Generic Name Dose Route Start Last Admin Trade Name Freq PRN Reason Stop Dose Admin Hydrocodone Bitart/Acetaminophen 1 tab 08/17/20 20:33 08/17/20 20:39 [place] 325-5 Mg PO 08/17/20 20:34 1 tab ONETIME ONE Administration Ibuprofen 800 mg 08/17/20 20:33 08/17/20 20:38 Motrin PO 08/17/20 20:34 800 mg ONETIME ONE Administration Departure - Departure Time of Disposition: 22:02 Disposition: Home, Self-Care 01 Clinical Impression: Right hip pain - Discharge Information Referrals: Imani Dennis NP [Primary Care Provider] - Forms: ED Department Discharge Additional Instructions: The following information is given to patients seen in the emergency department who are being discharged to home. This information is to outline your options for follow-up care. We provide all patients seen in our emergency department with a follow-up referral. The need for follow-up, as well as the timing and circumstances, are variable depending upon the specifics of your emergency department visit. If you don't have a primary care physician on staff, we will provide you with a referral. We always advise you to contact your personal physician following an emergency department visit to inform them of the circumstance of the visit and for follow-up with them and/or the need for any referrals to a consulting specialist. The emergency department will also refer you to a specialist when appropriate. This referral assures that you have the opportunity for follow-up care with a specialist. All of these measure are taken in an effort to provide you with optimal care, which includes your follow-up. Under all circumstances we always encourage you to contact your private physician who remains a resource for coordinating your care. When calling for follow-up care, please make the office aware that this follow-up is from your recent emergency room visit. If for any reason you are refused follow-up, please contact the [facility] Emergency Department at and asked to speak to the emergency department charge nurse. [facility] [address] [place] [address] [id number] [address] [id number] 1. The medication you received today does cause drowsiness, so do not drive for the remaining day. 2. When resting please lay on a flat firm surface. Limit your mobility to prevent muscle stiffness. Get up to ambulate/move around/gentle stretching multiple times throughout the day. May alternate heat and ice to painful areas. 3. Tylenol as needed for back pain. Otherwise, take the prescribed tramadol and diclofenac as directed. Diclofenac as an anti-inflammatory medication so do not take any additional NSAIDs with this medication, such as naproxen, ibuprofen, or Aleve. Tramadol, this medication may cause drowsiness, so do not take it while driving or needing to be functioning outside of the home. 4. Follow-up with your primary care provider as discussed. Return to the ED as needed and as discussed. Sepsis Event Note (ED) - Evaluation Sepsis Screening Result: No Definite Risk
[2020-08-18 00:02] VITALS: BP 148/82; PULSE 58
== END 2020-08-17 22:06 | disposition home or self-care (01) ==
LOC: MW.ED 19:58
DX: M25.551 Pain in right hip (principal); E66.9 Obesity, unspecified; Z68.36 Body mass index [BMI] 36.0-36.9, adult; Z88.0 Allergy status to penicillin; Z91.040 Latex allergy status
CPT/HCPCS: 73502; 81003; 81025; 99283; A9270

== ENCOUNTER 2020-12-22 12:15 | Emergency (ER) | payer MEDICAID ==
[2020-12-22 12:44] VITALS: BP 134/87; PULSE 88
[2020-12-22] MEDS ORDERED: Acetaminophen/HYDROcodone 325-5 MG Tab PO ONE (13:00)
--- NOTE | 2020-12-22 13:12 | EDM.PDOC ---
ED HPI GENERAL MEDICAL PROBLEM - General Chief Complaint: Lower Extremity Injury/Pain Stated Complaint: LEFT PINKIE TOE Time Seen by Provider: 12/22/20 12:17 Source of Information: Reports: Patient History Limitations: Reports: No Limitations - History of Present Illness INITIAL COMMENTS - FREE TEXT/NARRATIVE: HISTORY AND PHYSICAL: History of present illness: The patient is a 35-year-old female who presents to the emergency room after falling in her garage this afternoon and striking her left pinky toe. She iced the area for 2 hours and took ibuprofen, however, it is very painful to walk. She has never injured her toe before. Patient denies any fever, chills, headache, change in vision, syncope or near syncope. Denies any chest pain, back pain, shortness of breath or cough. Denies any abdominal pain, nausea, vomiting, diarrhea, constipation or dysuria. Has not noted any blood in urine or stool. Patient has been eating and drinking appropriately. Review of systems: As per history of present illness and below otherwise all systems reviewed and negative. Past medical history: As per history of present illness and as reviewed below otherwise noncontributory. Surgical history: As per history of present illness and as reviewed below otherwise noncontributory. Social history: See social history for further information Family history: As per history of present illness and as reviewed below otherwise noncontributory. Physical exam: General: Well developed and well nourished. Alert and orientated x 3. Nontoxic in appearance and in no acute distress. Vital signs are stable and have been reviewed by me. Nursing notes were reviewed. HEENT: Atraumatic, normocephalic, pupils equal and reactive bilaterally, negative for conjunctival pallor or scleral icterus, mucous membranes moist, TMs normal bilaterally, throat clear, neck supple, nontender, trachea midline. No drooling or trismus noted. No meningeal signs. No hot potato voice noted. Lungs: Clear to auscultation bilaterally. No wheezes, rales, or rhonchi. Chest nontender. Normal work of breathing, no accessory muscles used. Heart: S1S2, regular rate and rhythm without overt murmur, gallops, or rubs. No JVD. No peripheral edema Abdomen: Soft, nondistended, nontender. Normoactive bowel sounds. Negative for masses or costovertebral tenderness. Skin: Intact, warm, dry. No lesions or rashes noted. Hematologic: No petechiae or purpra. Mucosa appropriate color and normal nail bed color and refill. Extremities: Left 5th toe swollen with erythema and tenderness. Decreased movement due to pain. Sensation intact. Color and warmth intact. Moves all other extremities per self without difficulty or deficits, negative for cords or calf pain. Neurovascular unremarkable. Neuro: Awake, alert, oriented. Cranial nerves II through XII unremarkable. Cerebellum unremarkable. Motor and sensory unremarkable throughout. Exam nonfocal. Psychiatric: Mood and affect are appropriate. Normal thought process. Answering questions appropriately. Notes: *This patient was seen and evaluated during the 2019 SARS-CoV-2 novel coronavirus pandemic period. Community viral transmission is ongoing at time of this encounter and the emergency department is operating under pandemic response procedures. After discussion and examination the patient is agreeable to an x-ray. Pain medication was offered and declined at this time. Left foot x-ray IMPRESSION: Acute mildly displaced and angulated fracture of the proximal phalanx of 5th toe of the left foot. Upon telling the patient about her fracture she began crying and stated that she was in pain 10 out of 10. I gave [place] 325/5 p.o. at that time. I will give the patient in a hard soled shoe to wear and [place] 325/5 mg p.o. every 4-6 hours as needed for pain #10, and have her follow-up with orthopedic. The patient wants to go to an orthopedic in her hometown of [place]. She states she will make the phone call. I have talked with the patient about today's findings, in addition to providing specific details for plan of care. Reassessment at the time of disposition demonstrates that the patient is in no acute distress. The patient is stable for discharge, counseling was provided and we discussed in great detail signs and symptoms that would prompt them to return to the Emergency Department. Medication, follow up and supportive care measures were reviewed and discussed. Voices understanding and is agreeable to plan of care. Denies any further questions or concerns at this time. Diagnostics: Therapeutics: [place] 325/5 mg p.o., hard sole shoe to left foot for fracture of 5th toe for stabilization and comfort for the patient to wear until follow up by ortho. Prescription: [place] 325/5 mg p.o. every 4-6 hours as needed for pain #10 Impression: Fractured left fifth toe Plan: 1. You were evaluated today on an emergent basis. Your left pinky toe pain from falling in your garage this morning was evaluated with an xray. You'r pinky toe is fractured and you will need to wear the hard soled shoe until you follow-up with orthopedic. You would like to go to [facility] and will make those phone calls for a follow up appointment. I have prescribed [place] 1 every 4-6 hours as needed for pain. You can use Motrin 800 mg every 8 hours as needed for pain or ice. As we discussed, attempt to keep your foot elevated as much as possible. 2. You can alternate Tylenol and ibuprofen as needed for pain and fever management. 3. We encourage you to follow up with your primary care provider and/or recommended specialist in the next few days for re-evaluation and further care/management. 4. If your symptoms should worsen, new symptoms develop or any of the signs and symptoms we discussed should arise please return to the emergency room or call 911 (if needed). Definitive disposition and diagnosis as appropriate pending reevaluation and review of above. Left Foot Pain Score (Numeric/FACES): 9 - Related Data Allergies Allergy/AdvReac Type Severity Reaction Status Date / Time amoxicillin Allergy Hives Verified 12/22/20 12:40 Latex, Natural Rubber Allergy Hives Verified 12/22/20 12:40 Penicillins Allergy Hives Verified 12/22/20 12:40 Home Meds: Home Meds FLUoxetine [PROzac] 20 mg PO DAILY 12/22/20 [History] Non-Formulary Medication [NF Drug] 1 each PO DAILY 12/22/20 [History] Past Medical History HEENT History: Reports: None Cardiovascular History: Reports: None Respiratory History: Reports: None Gastrointestinal History: Reports: None Other Gastrointestinal History: heartburn in Genitourinary History: Reports: None [employer] History: Reports: Dysfunctional Uterine Bleeding, Musculoskeletal History: Reports: Arthritis, Fracture Other Musculoskeletal History: 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, hx of fx right elbow Neurological History: Reports: None Psychiatric History: Reports: Depression Endocrine/Metabolic History: Reports: Obesity/BMI 30+ Hematologic History: Reports: None Immunologic History: Reports: None Oncologic (Cancer) History: Reports: None Dermatologic History: Reports: None - Infectious Disease History Infectious Disease History: Reports: None - Past Surgical History Head Surgeries/Procedures: Reports: None HEENT Surgical History: Reports: Tonsillectomy Cardiovascular Surgical History: Reports: None Respiratory Surgical History: Reports: None GI Surgical History: Reports: Hernia, Abdominal, Other (See Below) Other GI Surgeries/Procedures: Repaired 10/2013 and 03/2014. Female Surgical History: Reports: Section Endocrine Surgical History: Reports: None Neurological Surgical History: Reports: None Musculoskeletal Surgical History: Reports: Carpal Tunnel, Other (See Below) Other Musculoskeletal Surgeries/Procedures:: 06/2018 Oncologic Surgical History: Reports: None Dermatological Surgical History: Reports: None Social & Family History - Family History Family Medical History: No Pertinent Family History Cardiac: Reports: High Cholesterol, Hypertension, MD Oncologic: Reports: Ovarian - Tobacco Use Tobacco Use Status *Q: Never Tobacco User - Caffeine Use Caffeine Use: Reports: Coffee - Recreational Drug Use Recreational Drug Use: No Review of Systems - Review of Systems Review Of Systems: Comprehensive ROS is negative, except as noted in HPI. ED EXAM, GENERAL - Physical Exam Exam: See Below (See dictation) Course - Vital Signs Last Recorded V/S: Last Vital Signs Temp 96.8 F L 12/22/20 12:41 Pulse 88 12/22/20 12:41 Resp 17 12/22/20 12:41 BP 134/87 12/22/20 12:41 Pulse Ox 96 12/22/20 12:41 - Orders/Labs/Meds Orders: Active Orders 24 hr Category Date Time Status DME for Discharge [COMM] Stat Oth 12/22/20 13:05 Ordered Meds: Medications Discontinued Medications Generic Name Dose Route Start Last Admin Trade Name Cash PRN Reason Stop Dose Admin Hydrocodone Bitart/Acetaminophen 1 tab 12/22/20 13:00 12/22/20 13:16 Acetaminophen/Hydrocodone 325-5 Mg Tab PO 12/22/20 13:01 1 tab ONETIME ONE Administration Departure - Departure Time of Disposition: 13:12 Disposition: Home, Self-Care 01 Condition: Good Clinical Impression: Fracture of toe of left foot - Discharge Information *PRESCRIPTION DRUG MONITORING PROGRAM REVIEWED*: No *COPY OF PRESCRIPTION DRUG MONITORING REPORT IN PATIENT KATY: No Instructions: Toe Fracture, [id number] Referrals: Marc Jones MD [Primary Care Provider] - Forms: ED Department Discharge Additional Instructions: The following information is given to patients seen in the emergency department who are being discharged to home. This information is to outline your options for follow-up care. We provide all patients seen in our emergency department with a follow-up referral. The need for follow-up, as well as the timing and circumstances, are variable depending upon the specifics of your emergency department visit. If you don't have a primary care physician on staff, we will provide you with a referral. We always advise you to contact your personal physician following an emergency department visit to inform them of the circumstance of the visit and for follow-up with them and/or the need for any referrals to a consulting specialist. The emergency department will also refer you to a specialist when appropriate. This referral assures that you have the opportunity for follow-up care with a specialist. All of these measure are taken in an effort to provide you with optimal care, which includes your follow-up. Under all circumstances we always encourage you to contact your private physician who remains a resource for coordinating your care. When calling for follow-up care, please make the office aware that this follow-up is from your recent emergency room visit. If for any reason you are refused follow-up, please contact the [facility] Emergency Department at and asked to speak to the emergency department charge nurse. [facility] - Primary Care [address] [place], [place] [id number] [address] [address] Plan: 1. You were evaluated today on an emergent basis. Your left pinky toe pain from falling in your garage this morning was evaluated with an xray. You'r pinky toe is fractured and you will need to wear the hard soled shoe until you follow-up with orthopedic. You would like to go to [facility] and will make those phone calls for a follow up appointment. I have prescribed [place] 1 every 4-6 hours as needed for pain. You can use Motrin 800 mg every 8 hours as needed for pain or ice. As we discussed, attempt to keep your foot elevated as much as possible. 2. You can alternate Tylenol and ibuprofen as needed for pain and fever management. 3. We encourage you to follow up with your primary care provider and/or recommended specialist in the next few days for re-evaluation and further care/management. 4. If your symptoms should worsen, new symptoms develop or any of the signs and symptoms we discussed should arise please return to the emergency room or call 911 (if needed). Sepsis Event Note (ED) - Evaluation Sepsis Screening Result: No Definite Risk - Focused Exam Vital Signs: Vital Signs Temp Pulse Resp BP Pulse Ox 12/22/20 12:41 96.8 F L 88 17 134/87 96 - My Orders Last 24 Hours: My Active Orders 12/22/20 13:05 DME for Discharge [COMM] Stat - Assessment/Plan Last 24 Hours: My Active Orders 12/22/20 13:05 DME for Discharge [COMM] Stat
--- NOTE | 2020-12-22 13:27 | CR ---
HISTORY: Left foot pain, fall. TECHNIQUE: Three views of the left foot. COMPARISON: No prior. FINDINGS: There is an acute mildly displaced and angulated fracture of the proximal phalanx of the 5th toe of the left foot. No other fracture. Joint spaces maintained. Plantar calcaneal spur. No radiopaque foreign body or soft tissue gas. IMPRESSION: Acute mildly displaced and angulated fracture of the proximal phalanx of 5th toe of the left foot. Dictated by Parag Beckman MD @ 12/22/2020 1:26:[address] Parag Beckman @ Dec 22 2020 1:26PM
== END 2020-12-22 13:29 | disposition home or self-care (01) ==
LOC: MW.ED 12:15
DX: S92.512A Displaced fracture of proximal phalanx of left lesser toe(s), initial encounter for closed fracture (principal); E66.9 Obesity, unspecified; Z88.0 Allergy status to penicillin; Z91.040 Latex allergy status; Z68.36 Body mass index [BMI] 36.0-36.9, adult; W18.09XA Striking against other object with subsequent fall, initial encounter; Y92.59 Other trade areas as the place of occurrence of the external cause
CPT/HCPCS: 73630; 99283; A9270

== ENCOUNTER 2021-09-01 17:30 | Emergency (ER) | payer OTHER, MEDICAID ==
[2021-09-01] MEDS ORDERED: Ketorolac 30 MG/ML SDV IVPUSH ONE (18:21)
[2021-09-01] MEDS ORDERED: Sodium Chloride 0.9% 1,000 ML IV ONE (18:21)
[2021-09-01] MEDS ORDERED: Prochlorperazine 10 MG in Sodium Chloride 0.9% 50 ML IV ONE (18:21)
[2021-09-01 19:27] LABS: BLOOD UREA NITROGEN,BUN 15 mg/dL (7.0-18.0); CARBON DIOXIDE,CO2 23.5 mmol/L (21.0-32.0); CHLORIDE,CL 102 mmol/L (98-107); GLUCOSE RANDOM 101 mg/dL (74-106); POTASSIUM,K 3.6 mmol/L (3.5-5.1); SODIUM,NA 135 mmol/L (136-145)
[2021-09-01 20:29] VITALS: BP 104/55; PULSE 68
== END 2021-09-01 20:29 | disposition home or self-care (01) ==
LOC: MW.ED 17:30
DX: U07.1 COVID-19 (principal); E66.9 Obesity, unspecified; Z88.0 Allergy status to penicillin; Z91.040 Latex allergy status; Z79.899 Other long term (current) drug therapy; Z68.34 Body mass index [BMI] 34.0-34.9, adult
CPT/HCPCS: 36415; 80053; 81003; 85025; 87635; 87804; 96365; 96375; 99284; J0780; J1885; J7030; U0002